=== PATIENT | female | born 1995 | race African-American/Black ===

== ENCOUNTER 2019-12-13 10:57 | Emergency (ER) | payer SELFPAY ==
--- NOTE | 2019-12-13 11:42 | EDPHYS ---
Physician Documentation [facility] Name: Treasure Engle Age: 24 yrs Sex: Female : 1995 Arrival Date: 12/13/2019 Time: 11:00 Bed 18 Private MD: CHARLES Physician Edwar Bhagat HPI: 12/12 11:34 This 24 yrs old Black Female presents to ER via Ambulatory with complaints of Psych lukas Problem. 11:34 The patient presents to the emergency department with depression, suicide ideation, and lukas the patient has a plan, to cut oneself and bleed. Onset: The symptoms/episode began/occurred just prior to arrival. Past psychiatric history: Prior diagnosis: depression. Associated signs and symptoms: The patient has no apparent associated signs or symptoms. Severity of symptoms: At their worst the symptoms were mild in the emergency department the symptoms are unchanged. The patient has not experienced similar symptoms in the past. 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 - Social history:: Smoking status: Patient reports the use of cigarette tobacco products, smokes one-half pack cigarettes per day, Patient uses alcohol, on a daily basis. street drugs, Methamphetamine (Meth). ROS: 11:35 Constitutional: Negative for fever, chills, and weight loss, Eyes: Negative for injury, lukas pain, redness, and discharge, ENT: Negative for injury, pain, and discharge, Neck: Negative for injury, pain, and swelling, Cardiovascular: Negative for chest pain, palpitations, and edema, Respiratory: Negative for shortness of breath, cough, wheezing, and pleuritic chest pain, Abdomen/GI: Negative for abdominal pain, nausea, vomiting, diarrhea, and constipation, Back: Negative for injury and pain, : Negative for injury, bleeding, discharge, and swelling, MS/Extremity: Negative for injury and deformity, Skin: Negative for injury, rash, and discoloration, Neuro: Negative for headache, weakness, numbness, tingling, and seizure, Allergy/Immunology: Negative for hives, rash, and allergies, Endocrine: Negative for neck swelling, polydipsia, polyuria, polyphagia, and marked weight changes, Hematologic/Lymphatic: Negative for swollen nodes, abnormal bleeding, and unusual bruising. 11:35 Psych: Positive for depression, suicidal ideation. Exam: 11:35 Constitutional: This is a well developed, well nourished patient who is awake, alert, lukas and in no acute distress. Head/Face: Normocephalic, atraumatic. Eyes: Pupils equal round and reactive to light, extra-ocular motions intact. Lids and lashes normal. Conjunctiva and sclera are non-icteric and not injected. Cornea within normal limits. Periorbital areas with no swelling, redness, or edema. ENT: Nares patent. No nasal discharge, no septal abnormalities noted. Tympanic membranes are normal and external auditory canals are clear. Oropharynx with no redness, swelling, or masses, exudates, or evidence of obstruction, uvula midline. Mucous membranes moist. Neck: Trachea midline, no thyromegaly or masses palpated, and no cervical lymphadenopathy. Supple, full range of motion without nuchal rigidity, or vertebral point tenderness. No Meningismus. Chest/axilla: Normal chest wall appearance and motion. Nontender with no deformity. No lesions are appreciated. Cardiovascular: Regular rate and rhythm with a normal S1 and S2. No gallops, murmurs, or rubs. Normal PMI, no JVD. No pulse deficits. Respiratory: Lungs have equal breath sounds bilaterally, clear to auscultation and percussion. No rales, rhonchi or wheezes noted. No increased work of breathing, no retractions or nasal flaring. Abdomen/GI: Soft, non-tender, with normal bowel sounds. No distension or tympany. No guarding or rebound. No evidence of tenderness throughout. Back: No spinal tenderness. No costovertebral tenderness. Full range of motion. Female : Normal external genitalia. Skin: Warm, dry with normal turgor. Normal color with no rashes, no lesions, and no evidence of cellulitis. MS/ Extremity: Pulses equal, no cyanosis. Neurovascular intact. Full, normal range of motion. Neuro: Awake and alert, GCS 15, oriented to person, place, time, and situation. Cranial nerves II-XII grossly intact. Motor strength 5/5 in all extremities. Sensory grossly intact. Cerebellar exam normal. Normal gait. Psych: Awake, alert, with orientation to person, place and time. Behavior, mood, and affect are within normal limits. Vital Signs: 11:05 BP 141 / 84; Pulse 102; Resp 16 S; Temp 98.4(O); Pulse Ox 96% on R/A; Weight 154.22 kg ca1 (R); Height 5 ft. 4 in. (162.56 cm) (R); Pain 0/10; 11:05 Body Mass Index 58.36 (154.22 kg, 162.56 cm) ca1 MDM: 11:25 Patient medically screened. [facility] 11:36 Data reviewed: vital signs, nurses notes. Data interpreted: threat monitoring analyst: not [facility] applicable for this patient encounter. Pulse oximetry: on room air is 96 %. ED course: pt states not suicidal now, wants to follow up as out patient, will dc pt and she will return to the er if her situation changes or worsens. 12/12 11:23 Order name: EKG - Nurse/Tech [facility] 12/12 11:23 Order name: IV Saline Lock [facility] 12/12 11:23 Order name: Labs collected and sent [facility] 12/12 11:23 Order name: Urine Dipstick-Ancillary (obtain specimen) [facility] Administered Medications: No medications were administered Disposition: 12/13/19 11:39 Discharged to Home. Impression: Suicidal ideations, Major depressive disorder, recurrent. - Condition is Stable. - Discharge Instructions: Suicidal Feelings: How to Help Yourself, Helping Someone Who is Suicidal, Stress and Stress Management, Major Depressive Disorder, Shea-wc-Pmsy, Major Depressive Disorder. - Medication Reconciliation Form, Thank You Letter, Antibiotic Education, Prescription Opioid Use form. - Follow up: Private Physician; When: 2 - 3 days; Reason: Recheck today's complaints, Continuance of care, Re-evaluation by your physician. - Problem is new. - Symptoms have improved. Signatures: Dispatcher [employer] Breann Harrington RN RN Edwar Ibarra MD MD cha Acob, Cheryl, RN RN ca1 Corrections: (The following items were deleted from the chart) 11:46 11:39 12/13/2019 11:39 Discharged to Home. Impression: Suicidal ideations; Major sv depressive disorder, recurrent. Condition is Stable. Forms are Medication Reconciliation Form, Thank You Letter, Antibiotic Education, Prescription Opioid Use. Follow up: Private Physician; When: 2 - 3 days; Reason: Recheck today's complaints, Continuance of care, Re-evaluation by your physician. Problem is new. Symptoms have improved. lukas
--- NOTE | 2019-12-13 11:42 | ER ---
Nurse's Notes [facility] Name: Treasure Engle Age: 24 yrs Sex: Female : 1995 Arrival Date: 12/13/2019 Time: 11:00 Bed 18 Private MD: Diagnosis: Suicidal ideations;Major depressive disorder, recurrent Presentation: 12/12 11:05 Chief complaint: Patient states: "I was in rehab and they sent me here for psychiatric ca1 emergency. I am suicidal and I plan to do it by slitting my wrist". Reports no previous attempts. Coronavirus screen: Proceed with normal triage. Patient denies a cough. Patient denies shortness of breath or difficulty breathing. Patient denies measured and/or subjective temperature greater than 100.4F prior to today's visit. Patient denies travel on a cruise ship or to a country the [facility] currently lists as an affected area. Patient denies contact with known and/or suspected case of COVID-19. Ebola Screen: Patient negative for fever greater than or equal to 101.5 degrees Fahrenheit, and additional compatible Ebola Virus Disease symptoms Patient denies exposure to infectious person. Patient denies travel to an Ebola-affected area in the 21 days before illness onset. No symptoms or risks identified at this time. Initial Sepsis Screen: Does the patient meet any 2 criteria? No. Patient's initial sepsis screen is negative. Does the patient have a suspected source of infection? No. Patient's initial sepsis screen is negative. Risk Assessment: Do you want to hurt yourself or someone else? Patient reports desire/thoughts of hurting themselves or someone else. Provider notified. Onset of symptoms was December 13, 2019. 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 - Social history:: Smoking status: Patient reports the use of cigarette tobacco products, smokes one-half pack cigarettes per day, Patient uses alcohol, on a daily basis. street drugs, Methamphetamine (Meth). Screenin:20 Abuse screen: Denies threats or abuse. Denies injuries from another. Nutritional sv screening: No deficits noted. Tuberculosis screening: No symptoms or risk factors identified. Fall Risk None identified. Assessment: 11:20 Reassessment: Pt asking how long she has to be here. Stated "I thought they were just sv going to transfer me to a place." Pt informed that we must medically clear her before we can initiate a transfer. Pt appears to not be happy with that. Pt stated that she wants to leave. Pt stated "I don't have a plan. I told them I didn't have these thoughts right now but I've had them in the past." Informed Dr Bhagat of what pt stated. 11:20 General: Appears in no apparent distress. comfortable, Behavior is calm, cooperative, sv appropriate for age. Pain: Denies pain. Neuro: Level of Consciousness is awake, alert, obeys commands, Oriented to person, place, time, situation, Gait is steady. Respiratory: Airway is patent Respiratory effort is even, unlabored, Respiratory pattern is regular, symmetrical. Derm: Skin is pink, warm \\T\\ dry. 11:29 Reassessment: Dr Bhagat at the bedside. sv 11:46 Reassessment: Patient appears in no apparent distress at this time. No changes from sv previously documented assessment. Patient and/or family updated on plan of care and expected duration. Pain level reassessed. Patient is alert, oriented x 3, equal unlabored respirations, skin warm/dry/pink. Psych: 11:10 Subjective: Patient's mood is sad, Delusions are denied, Hallucinations are auditory, ca1 visual, Having thoughts of suicide. Plan for suicide is slit her wrist. Objective: Patient is cooperative, Speech is normal, Affect is appropriate. Interventions: Removed personal items and placed in bag. Patient placed in hospital gown. Searched person for dangerous items. Urine collected and sent for urine drug test. Belonging list filled out. Suicide Risk Assessment: Sad Person Scale: Sex of patient: Female: Score 0 points. Age of patient: Score 1 point if patient 15-34. Depression: Score 1 point if signs of depression are present. Previous Attempt: Score 0 point if patient has not previously attempted suicide. Substance Abuse: Score 1 point if patient abuses alcohol or drugs. Rational Thinking: Score 0 point if patient has rational thinking. Social Support: Score 0 if social support is present/available. Organized Plan: Score 1 point if patient had a plan in place. Relationship: Score 1 point if patient is , , , or for a single male Chronic Sickness: Score 0 point if patient does not have a chronic illness, debilitating, or severe disorder. TOTAL POINTS: If total points are 5-6, proposed clinical action is to strongly consider hospitalization, depending upon confidence in the follow-up arrangement. Implement suicide precautions. Safety Checks: Personal items have been removed. Door is open. Patient uses methamphetamines a gram a day daily. Last use was 1 months ago. Vital Signs: 11:05 BP 141 / 84; Pulse 102; Resp 16 S; Temp 98.4(O); Pulse Ox 96% on R/A; Weight 154.22 kg ca1 (R); Height 5 ft. 4 in. (162.56 cm) (R); Pain 0/10; 11:05 Body Mass Index 58.36 (154.22 kg, 162.56 cm) ca1 ED Course: 11:00 Patient arrived in ED. ag5 11:02 Edwar Bhagat MD is Attending Physician. [facility] 11:08 Triage completed. ca1 11:10 Arm band placed on right wrist. ca1 11:20 Patient has correct armband on for positive identification. Placed in gown. Bed in low sv position. 11:29 Breann Bejarano RN is Primary Nurse. sv 11:46 No provider procedures requiring assistance completed. Patient did not have IV access sv during this emergency room visit. Administered Medications: No medications were administered Outcome: 11:39 Discharge ordered by . lukas 11:46 Patient left the ED. sv 11:46 Discharged to home ambulatory. sv 11:46 Condition: stable 11:46 Discharge instructions given to patient, Instructed on discharge instructions, follow up and referral plans. Demonstrated understanding of instructions, follow-up care. Signatures: Breann Bejarano RN RN sv Anderson, Corey, MD MD cha Acob, Cheryl, RN RN ca1 Noah Aldair ag5
[2019-12-13 12:16] VITALS: BP 141/84; TEMP 98.4; O2SAT 96
== END 2019-12-13 11:46 | disposition home or self-care (01) ==
LOC: ER 10:57
DX: F33.9 Major depressive disorder, recurrent, unspecified (principal); F17.210 Nicotine dependence, cigarettes, uncomplicated
CPT/HCPCS: 99284

== ENCOUNTER 2019-12-19 11:17 | Emergency (ER) | payer SELFPAY ==
[2019-12-19 12:11] LABS: Absolute Lymphocytes (CBC) 2.1 K/uL (0.7-4.9); Hematocrit 35.5 % (36.0-45.0); Lymphocytes % 33.5 % (15.3-44.8); MPV 9.9 fL (7.6-11.3); RBC Red Blood Cell Count 4.29 M/uL (3.86-4.86)
--- OUTSIDE RECORDS SUMMARY | 2019-12-19 12:26 | XMS REPORT ---
:1995 Author Organization [facility] t Address [address] [place] [address] Care Team Providers Name Role Phone Unavailable Unavailable Unavailable Payers Payer Name Policy Type Policy Number Effective Date Expiration Date S ource Problems This patient has no known problems. Allergies, Adverse Reactions, Alerts Allergy Allergy Status Severity Reaction(s) Onset Inactive Treating Comm ents Source Name Type Date Date Clinician No Known DA Active U 2018-0 [facility] 1-18 Clear s 00:00: Barba 00 [facility] No Known DA Active U 2011-0 [facility] Allergie 6-06 Clear s 00:00: Barba 00 [facility] Medications This patient has no known medications. Procedures This patient has no known procedures. Encounters Start End Encounter Admission Attending Care Care Encounter Source Date/Time Date/Time Type Type Clinicians Facility Department ID 2017-08-27 2017-08-27 [facility]patient [facility] [id number] [address] [place] [address] 00:00:00 00:00:00 [facility] Results Test Description Test Time Test Comments Results Result Comments Source DRUGS OF ABUSE SCREEN UR 2018-09-25 17:28:00 Test Item Value Reference Range Interpretation Comme nts URN COCAINE (test code = COCAURN) NEGATIVE NEGATIVE URN CANNABINOIDS (test code = NEGATIVE NEGATIVE CANNABURN) URN AMPHETAMINE (test code = POSITIVE NEGATIVE A AMPHETURN) URN BARBITURATE (test code = NEGATIVE NEGATIVE BARBITURN) URN BENZODIAZEPINE (test code = NEGATIVE NEGATIVE Cut-off value:200 ng/mL BENZOURN) URN OPIATES (test code = NEGATIVE NEGATIVE Cut -off value:2000 ng/mL OPIATURN) URN PHENCYCLIDINE (PCP) (test NEGATIVE NEGATIVE Cutoffs:Barbiturates code = PHENCURN) 200 ng/mLB enzodiazepines 200 ng/mLTHC Cannabinoids 50 ng/mLO piates(Morphine) 2000 ng/m LAmphetamine 1000 ng /mLCocaine 300 ng/mLPCP phencyclidine 25 ng/mL Unconfirmed scr eening results shouldnot be us ed for non-medical pur poses. DRUGS OF ABUSE SCREEN [id number] 17:12:00 Test Item Value Reference Range Interpretation Comments URN COCAINE (test code NEGATIVE NEGATIVE = COCAURN) URN CANNABINOIDS (test NEGATIVE NEGATIVE code = CANNABURN) URN AMPHETAMINE (test NEGATIVE code = AMPHETURN) URN BARBITURATE (test NEGATIVE NEGATIVE code = BARBITURN) URN BENZODIAZEPINE NEGATIVE NEGATIVE Cut-off v alue:200 (test code = BENZOURN) ng/mL URN OPIATES (test code NEGATIVE NEGATIVE Cut-o ff value:2000 = OPIATURN) ng/mL URN PHENCYCLIDINE (PCP) NEGATIVE NEGATIVE Cuto ffs:Barbiturates (test code = PHENCURN) 200 ng/mLBenzodiaze pines 200 ng/ mLTHC Cannabinoids 50 ng/mLOpiates(Mo rphine) 2000 ng/mLAmphetamin e 1000 ng/mLCocaine 300 ng/ mLPCP phencyclidine 25 ng/mL Unconf irmed screening resul ts shouldnot be us ed for non-medical pur poses. URINALYSIS [id number] 16:59:00 Test Item Value Reference Range Interpretation Comments UA COLOR (test code = COLU) YELLOW YEL/STRAW UA APPEARANCE (test code = APPU) CLOUDY CLEAR A UA GLUCOSE DIPSTICK (test code = NEGATIVE NEGATIVE DGLUU) UA BILIRUBIN DIPSTICK (test code NEGATIVE NEGATIVE = BILU) UA KETONE DIPSTICK (test code = TRACE NEGATIVE A KETU) UA SPECIFIC GRAVITY (test code = 1.009 1.005-1.030 N SGU) UA BLOOD DIPSTICK (test code = NEGATIVE NEGATIVE LUCIEN) UA PH DIPSTICK (test code = BENJA) 6.0 5.0-7.0 N UA PROTEIN DIPSTICK (test code = NEGATIVE NEGATIVE PROU) UA UROBILINIOGEN DIPSTICK (test 0.2 mg/dL 0.2-1.0 code = URO) UA NITRITE DIPSTICK (test code = NEGATIVE NEGATIVE ILENE) UA LEUKOCYTE ESTERASE DIPSTICK NEGATIVE NEGATIVE (test code = LEUU) UA WBC (test code = WBCU) 0-3 WBC/HPF 0-3 UA RBC (test code = RBCU) 0-3 RBC/HPF 0-3 UA BACTERIA (test code = BACU) TRACE /HPF NONE SEEN UA SQUAMOUS CELLS (test code = 0-5 /HPF NONE SEEN SQU) UA HYALINE CAST (test code = 3-5 /LPF NONE SEEN HYALU) UA MUCUS (test code = MUCU) 2+ /LPF NONE SEEN A COMMENTS: Clean Catch- XR CHEST 1 [id number] 16:09:00 FAX: Asher Pringle MD [phone] [place]: St: REG Name: GAVIN CRUZ [facility] : 1995 Age/S: 22/F [address] [place] [address] Unit#: [id number] Loc: G.ERS2 [place] [address] Phys: Asher Pringle MD Acct: [id number] Dis Date: Status: REG ER PHONE #: [phone] Exam Date: 09/25/2018 1601 FAX #: [phone] Reason: Cough EXAMS: CPT CODE: [id number] XR CHEST 1 V 66629 Clinical Indication: Cough Comparison: Chest x-ray August 20, 2018 FINDINGS: The frontal chest radiograph shows normal lung volumes without interstitial or airspace opacities, pleural effusions or pneumothorax. The heart is normal in size. The trachea is midline. There are no clinically significant osseous abnormalities noted. IMPRESSION: No chest radiographic evidence of acute cardiopulmonary disease. SL: [id number] at 1609 Reported and signed by: Tyrone Irvin M.D. CC: Asher Pringle MD Technologist: Anna Danielson,RT(R); Breann Lorenzo, RT(R) Trnscrd Date/Time/By: 09/25/2018 (9284) : By: KatherinLNV Orig Print D/T: S: 09/25/2018 (4298) PAGE 1 Signed ReportCOMPREHENSIVE METABOLIC [id number] 15:50:00 Test Item Value Reference Range Interpretation Comments SODIUM (test code = NA) 141 mEq/L 134-147 N POTASSIUM (test code = 4.0 mEq/L 3.4-5.0 N K) CHLORIDE (test code = 106 mEq/L 100-108 N CL) CARBON DIOXIDE (test 28 mEq/L 21-33 N code = CO2) ANION GAP (test code = 11 0-20 N GAP) GLUCOSE (test code = 81 mg/dL 70-110 N GLU) BLOOD UREA NITROGEN 11 mg/dL 7-18 N (test code = BUN) GLOMERULAR FILTRATION 129.1 110-120 H Units of measure = RATE (test code = GFR) ml/mi n/1.73 m2 CREATININE (test code = 0.7 mg/dL 0.6-1.3 N CREAT) TOTAL PROTEIN (test 9.0 g/dL 6.4-8.2 H code = PROT) ALBUMIN (test code = 3.90 g/dL 3.4-5.0 N ALB) CALCIUM (test code = 8.9 mg/dL 8.0-10.5 N CA) BILIRUBIN TOTAL (test 0.30 mg/dL 0.0-1.0 N code = BILT) SGOT/AST (test code = 24 IUnit/L 15-37 N AST) SGPT/ALT (test code = 64 IUnit/L 15-65 N ALT) ALKALINE PHOSPHATASE 118 IUnit/L 20-125 N TOTAL (test code = ALKP) BILIRUBIN [id number] 15:50:00 Test Item Value Reference Range Interpretation Comments BILIRUBIN DIRECT (test code = 0.10 MG/DL 0.0-0.30 N BILD) HCG SERUM [id number] 15:50:00 Test Item Value Reference Range Interpretation Comments HCG SERUM QUAL (test code = SERUM NEGATIVE NEGATIVE HCGQL) THYROID STIMULATING [id number] 15:50:00 Test Item Value Reference Range Interpretation Comments THYROID STIMULATING 3.44 0.42-5.47 N Results in HORMONE (test code = TSH) mi lli-International Units/mL [id number] 15:50:00 Test Item Value Reference Range Interpretation Comments ACETAMINOPHEN (test code = ACET) < 2 ug/mL 10-30 L [id number] 15:50:00 Test Item Value Reference Range Interpretation Comments SALICYLATE (test code = TROY) 3.7 mg/dL 2.8-20.0 N [id number] 15:50:00 Test Item Value Reference Range Interpretation Comments ALCOHOL (test code < 0.003 G/dL <0.003 Ethyl Alc ohol = ALC) Interpretation: 0.100 gm/dL - Legally Intoxic ated 0.300-0.40 0 gm/dL - Severely Into xicated >0.400 gm/dL - Potentially LethalResults a re for Medical purpose s only, and not for Leg al orEmployment ev aluation purposes. COMPREHENSIVE METABOLIC [id number] 15:44:00 Test Item Value Reference Range Interpretation Comments SODIUM (test code = NA) 141 mEq/L 134-147 N POTASSIUM (test code = 4.0 mEq/L 3.4-5.0 N K) CHLORIDE (test code = 106 mEq/L 100-108 N CL) CARBON DIOXIDE (test 28 mEq/L 21-33 N code = CO2) ANION GAP (test code = 11 0-20 N GAP) GLUCOSE (test code = 81 mg/dL 70-110 N GLU) BLOOD UREA NITROGEN 11 mg/dL 7-18 N (test code = BUN) GLOMERULAR FILTRATION 129.1 110-120 H Units of measure = RATE (test code = GFR) ml/mi n/1.73 m2 CREATININE (test code = 0.7 mg/dL 0.6-1.3 N CREAT) TOTAL PROTEIN (test g/dL 6.4-8.2 code = PROT) ALBUMIN (test code = 3.90 g/dL 3.4-5.0 N ALB) CALCIUM (test code = 8.9 mg/dL 8.0-10.5 N CA) BILIRUBIN TOTAL (test mg/dL 0.0-1.0 code = BILT) SGOT/AST (test code = 24 IUnit/L 15-37 N AST) SGPT/ALT (test code = 64 IUnit/L 15-65 N ALT) ALKALINE PHOSPHATASE IUnit/L 20-125 TOTAL (test code = ALKP) BILIRUBIN [id number] 15:44:00 Test Item Value Reference Range Interpretation Comments BILIRUBIN DIRECT (test code = 0.10 MG/DL 0.0-0.30 N BILD) HCG SERUM [id number] 15:44:00 Test Item Value Reference Range Interpretation Comments HCG SERUM QUAL (test code = SERUM NEGATIVE NEGATIVE HCGQL) THYROID STIMULATING [id number] 15:44:00 Test Item Value Reference Range Interpretation Comments THYROID STIMULATING HORMONE (test code 0.42-5.47 = TSH) [id number] 15:44:00 Test Item Value Reference Range Interpretation Comments ACETAMINOPHEN (test code = ACET) ug/mL 10-30 [id number] 15:44:00 Test Item Value Reference Range Interpretation Comments SALICYLATE (test code = TROY) mg/dL 2.8-20.0 [id number] 15:44:00 Test Item Value Reference Range Interpretation Comments ALCOHOL (test code = ALC) G/dL <0.003 COMPREHENSIVE METABOLIC [id number] 15:42:00 Test Item Value Reference Range Interpretation Comments SODIUM (test code = NA) 141 mEq/L 134-147 N POTASSIUM (test code = 4.0 mEq/L 3.4-5.0 N K) CHLORIDE (test code = 106 mEq/L 100-108 N CL) CARBON DIOXIDE (test 28 mEq/L 21-33 N code = CO2) ANION GAP (test code = 11 0-20 N GAP) GLUCOSE (test code = 81 mg/dL 70-110 N GLU) BLOOD UREA NITROGEN 11 mg/dL 7-18 N (test code = BUN) GLOMERULAR FILTRATION 129.1 110-120 H Units of measure = RATE (test code = GFR) ml/mi n/1.73 m2 CREATININE (test code = 0.7 mg/dL 0.6-1.3 N CREAT) TOTAL PROTEIN (test g/dL 6.4-8.2 code = PROT) ALBUMIN (test code = 3.90 g/dL 3.4-5.0 N ALB) CALCIUM (test code = 8.9 mg/dL 8.0-10.5 N CA) BILIRUBIN TOTAL (test mg/dL 0.0-1.0 code = BILT) SGOT/AST (test code = 24 IUnit/L 15-37 N AST) SGPT/ALT (test code = 64 IUnit/L 15-65 N ALT) ALKALINE PHOSPHATASE IUnit/L 20-125 TOTAL (test code = ALKP) BILIRUBIN [id number] 15:42:00 Test Item Value Reference Range Interpretation Comments BILIRUBIN DIRECT (test code = 0.10 MG/DL 0.0-0.30 N BILD) HCG SERUM [id number] 15:42:00 Test Item Value Reference Range Interpretation Comments HCG SERUM QUAL (test code = HCGQL) NEGATIVE THYROID STIMULATING [id number] 15:42:00 Test Item Value Reference Range Interpretation Comments THYROID STIMULATING HORMONE (test code 0.42-5.47 = TSH) [id number] 15:42:00 Test Item Value Reference Range Interpretation Comments ACETAMINOPHEN (test code = ACET) ug/mL 10-30 [id number] 15:42:00 Test Item Value Reference Range Interpretation Comments SALICYLATE (test code = TROY) mg/dL 2.8-20.0 [id number] 15:42:00 Test Item Value Reference Range Interpretation Comments ALCOHOL (test code = ALC) G/dL <0.003 CBC W/AUTO [id number] 15:33:00 Test Item Value Reference Range Interpretation Comments WHITE BLOOD CELL (test code = 10.35 x10 3/uL 4.5-11.0 WBC) RED BLOOD CELL (test code = 4.31 x10 6/uL 3.54-5.02 N RBC) HEMOGLOBIN (test code = HGB) 11.5 g/dL 11.0-15.0 N HEMATOCRIT (test code = HCT) 37.3 % 33.0-45.0 N MEAN CELL VOLUME (test code = 86.5 fL 81.0-99.0 N MCV) MEAN CELL HGB (test code = 26.7 pg 27.0-33.0 L MCH) MEAN CELL HGB CONCETRATION 30.8 g/dL 33.0-37.0 L (test code = MCHC) RED CELL DISTRIBUTION WIDTH CV 15.7 % 11.5-14.5 H (test code = RDW) RED CELL DISTRIBUTION WIDTH SD 49.5 fL 37.0-54.0 N (test code = RDW-SD) PLATELET COUNT (test code = 336 x10 3/uL 150-400 N PLT) MEAN PLATELET VOLUME (test 11.4 fL 7.0-9.0 H code = MPV) NEUTROPHIL % (test code = NT%) 65.0 % 56.0-77.0 N IMMATURE GRANULOCYTE % (test 0.8 % 0.0-2.0 N code = IG%) LYMPHOCYTE % (test code = LY%) 23.2 % 14.0-32.0 N MONOCYTE % (test code = MO%) 10.1 % 4.8-9.0 H EOSINOPHIL % (test code = EO%) 0.3 % 0.3-3.7 N BASOPHIL % (test code = BA%) 0.6 % 0.0-2.0 N NUCLEATED RBC % (test code = 0.0 % 0-0 N NRBC%) NEUTROPHIL # (test code = NT#) 6.73 x10 3/uL 2.0-7.6 N IMMATURE GRANULOCYTE # (test 0.08 x10 3/uL 0.00-0.03 H code = IG#) LYMPHOCYTE # (test code = LY#) 2.40 x10 3/uL 1.0-3.8 N MONOCYTE # (test code = MO#) 1.05 x10 3/uL 0.1-0.8 H EOSINOPHIL # (test code = EO#) 0.03 x10 3/uL 0.0-0.2 N BASOPHIL # (test code = BA#) 0.06 x10 3/uL 0.0-0.2 N NUCLEATED RBC # (test code = 0.00 x10 3/uL 0.0-0.1 N NRBC#) MANUAL DIFF REQUIRED (test NO code = MDIFF) PROCALCITONIN (PCT)2018-08-20 05:02:00 Test Item Value Reference Range Interpretation Comments PROCALCITONIN (PCT) 0.06 ng/mL 0.00-0.05 H PROCALCI TONIN (PCT) (test code = PROCAL) NORMAL RANGE (ADULT): <0.05 NG/ML. * a concentration < 0.5 ng/mL represent s a low risk of severe sepsis and/or septic s hock.* a concentration > 2 ng/mL represents a hi gh risk of severe seps is and/or septic shock.Neverthel ess, concentrations <0.5 ng/mL do not ex clude aninfection, on account of localized in fections (withoutsystemi c signs) which can be as sociated with such lowconcentratio ns, or a systemic infect ion in its initialstag es (< 6 hours). Further more, increased procalcitoninca n occur without infecti on. PCT concentrations between 0.5and 2.0 ng/m L should be interpreted taking into account thepatient's hi story. It is recommend ed to retest PCT with in6-24 hours if any concentrations <2 ng/mL are obtained. HEPATIC FUNCTION [id number] 04:51:00 Test Item Value Reference Range Interpretation Comments TOTAL PROTEIN (test code = PROT) 8.6 g/dL 6.4-8.2 H ALBUMIN (test code = ALB) 3.70 g/dL 3.4-5.0 N BILIRUBIN TOTAL (test code = 0.30 mg/dL 0.0-1.0 N BILT) BILIRUBIN DIRECT (test code = 0.10 MG/DL 0.0-0.30 N BILD) BILIRUBIN INDIRECT (test code = 0.20 MG/DL BILIND) SGOT/AST (test code = AST) 13 IUnit/L 15-37 L SGPT/ALT (test code = ALT) 28 IUnit/L 15-65 N ALKALINE PHOSPHATASE TOTAL (test 115 IUnit/L 20-125 N code = ALKP) URINALYSIS [id number] 04:48:00 Test Item Value Reference Range Interpretation Comments UA COLOR (test code = COLU) YELLOW YEL/STRAW UA APPEARANCE (test code = CLEAR CLEAR APPU) UA GLUCOSE DIPSTICK (test code NEGATIVE NEGATIVE = DGLUU) UA BILIRUBIN DIPSTICK (test NEGATIVE NEGATIVE code = BILU) UA KETONE DIPSTICK (test code NEGATIVE NEGATIVE = KETU) UA SPECIFIC GRAVITY (test code 1.011 1.005-1.030 N = SGU) UA BLOOD DIPSTICK (test code = NEGATIVE NEGATIVE LUCIEN) UA PH DIPSTICK (test code = 8.0 5.0-7.0 H BENJA) UA PROTEIN DIPSTICK (test code NEGATIVE NEGATIVE = PROU) UA UROBILINIOGEN DIPSTICK 0.2 mg/dL 0.2-1.0 (test code = URO) UA NITRITE DIPSTICK (test code NEGATIVE NEGATIVE = ILENE) UA LEUKOCYTE ESTERASE DIPSTICK NEGATIVE NEGATIVE (test code = LEUU) UA WBC (test code = WBCU) 0-3 WBC/HPF 0-3 UA RBC (test code = RBCU) 0-3 RBC/HPF 0-3 UA BACTERIA (test code = BACU) NONE SEEN /HPF NONE SEEN UA SQUAMOUS CELLS (test code = 0-5 /HPF NONE SEEN SQU) COMMENTS: Clean CatchUA CULT [id number] 04:48:00 Test Item Value Reference Range Interpretation Comments UA CULTURE NEEDED? NO, WBC<10 Culture Chk Criteria not met, (test code = Criteria Urine Culture UACULT) cancelled. COMMENTS: Clean CatchCBC W/AUTO [id number] 04:29:00 Test Item Value Reference Range Interpretation Comments WHITE BLOOD CELL (test code = 18.52 x10 3/uL 4.5-11.0 H WBC) RED BLOOD CELL (test code = 4.14 x10 6/uL 3.54-5.02 N RBC) HEMOGLOBIN (test code = HGB) 11.1 g/dL 11.0-15.0 N HEMATOCRIT (test code = HCT) 35.3 % 33.0-45.0 N MEAN CELL VOLUME (test code = 85.3 fL 81.0-99.0 N MCV) MEAN CELL HGB (test code = 26.8 pg 27.0-33.0 L MCH) MEAN CELL HGB CONCETRATION 31.4 g/dL 33.0-37.0 L (test code = MCHC) RED CELL DISTRIBUTION WIDTH CV 15.7 % 11.5-14.5 H (test code = RDW) RED CELL DISTRIBUTION WIDTH SD 49.2 fL 37.0-54.0 N (test code = RDW-SD) PLATELET COUNT (test code = 292 x10 3/uL 150-400 N PLT) MEAN PLATELET VOLUME (test 11.6 fL 7.0-9.0 H code = MPV) NEUTROPHIL % (test code = NT%) 87.3 % 56.0-77.0 H IMMATURE GRANULOCYTE % (test 0.8 % 0.0-2.0 N code = IG%) LYMPHOCYTE % (test code = LY%) 6.4 % 14.0-32.0 L MONOCYTE % (test code = MO%) 5.0 % 4.8-9.0 N EOSINOPHIL % (test code = EO%) 0.2 % 0.3-3.7 L BASOPHIL % (test code = BA%) 0.3 % 0.0-2.0 N NUCLEATED RBC % (test code = 0.0 % 0-0 N NRBC%) NEUTROPHIL # (test code = NT#) 16.18 x10 3/uL 2.0-7.6 H IMMATURE GRANULOCYTE # (test 0.14 x10 3/uL 0.00-0.03 H code = IG#) LYMPHOCYTE # (test code = LY#) 1.19 x10 3/uL 1.0-3.8 N MONOCYTE # (test code = MO#) 0.92 x10 3/uL 0.1-0.8 H EOSINOPHIL # (test code = EO#) 0.03 x10 3/uL 0.0-0.2 N BASOPHIL # (test code = BA#) 0.06 x10 3/uL 0.0-0.2 N NUCLEATED RBC # (test code = 0.00 x10 3/uL 0.0-0.1 N NRBC#) MANUAL DIFF REQUIRED (test NO code = MDIFF) - XR CHEST 2 [id number] 04:04:00 FAX: Pro Hoffman NP [phone] [place]: [address]: REG Name: GAVIN CRUZ [facility] : 1995 Age/S: 22/F [address] [place], [place] [address] Unit#: [id number] Loc: [place] [address] Phys: Pro Hoffman NP Acct: [id number] Dis Date: Status: REG ER PHONE #: [phone] Exam Date: 08/20/2018 0356 FAX #: [phone] Reason: COugh, fever EXAMS: CPT CODE: [id number] XR CHEST 2 V [id number] EXAM: CR, XR chest 2 views: 08/20/2018 HISTORY: COugh, fever TECHNIQUE: Frontal and lateral chest radiographs are submitted COMPARISON: None available. FINDINGS: Trachea is in midline. Heart is normalin size. Mild pulmonary vascular congestion is seen. No airspace consolidation, pneumothorax or pleural effusion is seen. Osseous structures are unremarkable. IMPRESSION: Mild pulmonary vascular congestion. No airspace consolidation seen.SL:[JSYED-H] at 0404 Reported and signed by: Ulysses Allred M.D. 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) [employer] with joint leadershi p from the EuropeanSociety of Cardiology (ESC ), the [place] Colleg e of Card[employer] Foun dation (ACCF), the [place] Heart Association(AHA ) and the World Heart Fed eration (WHF) refined p ast criteria of myocardial i nfarction ([place]) with a uni versal definition of m yocardial infarction that supports the use of cTnI as a preferred bioma rker for myocardial inju ry. The universal defin ition of [place], according to th is taskforce, is d efined as a typical rise an d gradual fall ofcardiac biomarkers (preferably tro ponin) with at least oneval ue above the 99th percentile of the upper reference limit (URL) together with e vidence of myocardial isch emia with at least one of th e following:* isc hemic symptoms,* path ological Q waves on electr ocardiogram (ECG),* ischemi c ECG changes,* or im aging evidence of new loss of viable myocardi um or new regional wall m otion abnormality. An elevated troponin value alone is not sufficient todi agnose a myocardial infa rction. Rather, the pat ient sclinical prese ntation (history, physi sergei exam) and ECGshould b e used in conjunction wit h troponin in thediagnosti c evaluation of suspected my ocardial infarction. Ase rial sampling protoc ol is recommended to facilitate the identificat ion of temporal change s in troponin levels characteristic of [place]. CHEMISTRY 8 [id number] 03:49:00 Test Item Value Reference Range Interpretation Comments ISTAT-SODIUM (test code = NAP) MMOL/L 134-147 ISTAT-POTASSIUM (test code = KP) MMOL/L 3.4-5.0 ISTAT-CHLORIDE (test code = CLP) MMOL/L 100-108 ISTAT CARBON DIOXIDE (test code = mmol/L 21-33 N ISTAT-CO2) ISTAT CALCIUM IONIZED (test code = MG/DL 1.12-1.32 ISTAT-MAGALIE) ISTAT-GLUCOSE (test code = GLUP) MG/DL 70-110 N ISTAT-BUN (test code = BUNP) MG/DL 7-18 N BEDSIDE CREATININE (test code = MG/DL 0.6-1.3 N CREATBED) GLOMERULAR FILTRATION RATE POC 164 ML/MIN (test code = GFRBED) CHEMISTRY 8 [id number] 03:49:00 Test Item Value Reference Range Interpretation Comments ISTAT-SODIUM (test 140 MMOL/L 134-147 N code = NAP) ISTAT-POTASSIUM (test 3.6 MMOL/L 3.4-5.0 N code = KP) ISTAT-CHLORIDE (test 100 MMOL/L 100-108 N Perform ed by code = CLP) certified opera tor at [facility] ISTAT CARBON DIOXIDE 25.0 mmol/L 21-33 N (test code = ISTAT-CO2) ISTAT CALCIUM IONIZED 1.17 MG/DL 1.12-1.32 N (test code = ISTAT-MAGALIE) ISTAT-GLUCOSE (test 108 MG/DL 70-110 N code = GLUP) ISTAT-BUN (test code = 8 MG/DL 7-18 N BUNP) BEDSIDE CREATININE 0.6 MG/DL 0.6-1.3 N (test code = CREATBED) GLOMERULAR FILTRATION 164 ML/MIN RATE POC (test code = GFRBED) LACTIC ACID [id number] 03:48:00 Test Item Value Reference Range Interpretation Comments LACTIC ACID POC 0.7 MMOL/L 0.90-1.70 L Performed by certified (test code = LACTP) 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
[2019-12-19 12:28] LABS: ALT/SGPT 36 U/L (12-78); AST/SGOT 24 U/L (15-37); Albumin 3.2 g/dL (3.4-5.0); Alkaline Phosphatase 118 U/L (45-117); BUN Blood Urea Nitrogen 7 mg/dL (7-18); Bicarbonate 28 mmol/L (21-32); Bilirubin Direct < 0.1 mg/dL (0-0.2); Bilirubin Total 0.1 mg/dL (0.2-1.0); Glucose Level 126 mg/dL (74-106); Potassium 3.8 mmol/L (3.5-5.1); Protein, Total 8.3 g/dL (6.4-8.2); Sodium Level 139 mmol/L (136-145); Troponin (Emerg Dept Use Only) < 0.02 ng/mL (0.0-0.045)
--- NOTE | 2019-12-19 12:36 | RAD REPORT ---
EXAM DESCRIPTION: RAD - Chest Single View - 12/19/2019 11:43 am CLINICAL HISTORY: CHEST PAIN COMPARISON: None TECHNIQUE: AP portable chest image was obtained 12/19/2019 11:43 am . FINDINGS: Lungs are clear. Heart and vasculature are normal. No measurable pleural effusion and no p neumothorax. No acute bony abnormality seen. No acute aortic findings suspected. IMPRESSION: No acute cardiopulmonary process. Body habitus is somewhat limiting for lung base evaluation. There is slight motion degradation at eac h lung base as well.
--- NOTE | 2019-12-19 12:36 | RAD REPORT ---
EXAM DESCRIPTION: US - Abdomen Exam Limited - 12/19/2019 11:41 am CLINICAL HISTORY: chest pain, rule out cholelithiasis COMPARISON: No comparisons FINDINGS: No gallstones, sludge or other abnormalities within the gallbladder lumen. There is no wal l thickening or pericholecystic fluid. No common duct stone or biliary tree dilatation identified. IMPRESSION: Normal gallbladder and biliary tree ultrasound.
--- NOTE | 2019-12-19 13:08 | EDPHYS ---
Physician Documentation [facility] Name: Treasure Engle Age: 24 yrs Sex: Female : 1995 Arrival Date: 12/19/2019 Time: 11:19 Bed 19 Private MD: ED Physician Emil Giraldo HPI: 12/18 11:24 This 24 yrs old Black Female presents to ER via EMS with complaints of chest pain. rn 11:24 The patient or guardian reports chest pain that is located primarily in the anterior rn chest wall. The pain radiates to the left arm. Associated signs and symptoms: The patient has no apparent associated signs or symptoms, Pertinent negatives: abdominal pain, cough, diaphoresis, lower extremity pain, lower extremity swelling, lightheadedness, nausea, near syncope, palpitations, shortness of breath, syncope, vomiting. The chest pain is described as aching. Duration: The patient or guardian reports a single episode, that is still ongoing. Modifying factors: The symptoms are alleviated by nothing. the symptoms are aggravated by nothing. Severity of pain: At its worst the pain was moderate in the emergency department the pain has improved. The patient has not experienced similar symptoms in the past. Reports chest pain, substernal, radiates to left arm, has never felt before, no sick contacts and no cough/fever/sob. Began while eating today. No abd pain/vomiting/diarrhea. . 11:26 No famhx of early cardiac disease, no trauma. . 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 tw2 Historical: - Allergies: 11:23 No Known Allergies; - Home Meds: 11:23 Celexa Oral [Active]; Doxepin Oral [Active]; Zyprexa Oral [Active]; ah - PMHx: 11:23 Depression; - PSHx: 11:23 None; - Immunization history:: Adult Immunizations. - Family history:: not pertinent. - Social history:: Smoking status: . - Hospitalizations: : No recent hospitalization is reported. ROS: 11:26 Constitutional: Negative for fever, chills, and weight loss, Cardiovascular: Negative rn for palpitations, and edema, Respiratory: Negative for shortness of breath, cough, wheezing, and pleuritic chest pain, Abdomen/GI: Negative for abdominal pain, nausea, vomiting, diarrhea, and constipation, Back: Negative for injury and pain, : Negative for injury, bleeding, discharge, and swelling, MS/Extremity: Negative for injury and deformity, Skin: Negative for injury, rash, and discoloration, Neuro: Negative for headache, weakness, numbness, tingling, and seizure. Exam: 11:26 Constitutional: Overweight female, no acute distress Head/Face: Normocephalic, rn atraumatic. Eyes: Pupils equal round and reactive to light, extra-ocular motions intact. Lids and lashes normal. Conjunctiva and sclera are non-icteric and not injected. Cornea within normal limits. Periorbital areas with no swelling, redness, or edema. Cardiovascular: Regular rate and rhythm, no JVD. No murmur. No pulse deficits. Respiratory: Lungs have equal breath sounds bilaterally, clear to auscultation. No increased work of breathing, no retractions or nasal flaring. Abdomen/GI: soft, non-tender, neg putnam Skin: Warm, dry with normal turgor. Normal color with no rashes, no lesions, and no evidence of cellulitis. MS/ Extremity: Pulses equal, no cyanosis. Neurovascular intact. Full, normal range of motion. Equal circumference. Neuro: Awake and alert, GCS 15 11:51 ECG was reviewed by the Attending Physician. rn Vital Signs: 11:33 BP 133 / 79; Pulse 96; Resp 17; Temp 97.9(TE); Pulse Ox 100% on R/A; Weight 154.22 kg tw2 (R); Height 5 ft. 4 in. (162.56 cm); 12:18 BP 112 / 81; Pulse 87; Resp 19; Pulse Ox 99% on R/A; tw2 13:23 BP 122 / 77; Pulse 84; Resp 18; Pulse Ox 99% on R/A; tw2 11:33 Body Mass Index 58.36 (154.22 kg, 162.56 cm) tw2 MDM: 11:22 Patient medically screened. rn 13:06 Differential diagnosis: Cholelithiasis costochondritis, esophagitis, gastritis, rn gastroesophageal reflux disease (GERD), pericarditis, pleurisy, pneumothorax. Data reviewed: vital signs, nurses notes, lab test result(s), EKG, radiologic studies, plain films, ultrasound, and as a result, I will discharge patient. Counseling: I had a detailed discussion with the patient and/or guardian regarding: the historical points, exam findings, and any diagnostic results supporting the discharge/admit diagnosis, lab results, radiology results, the need for outpatient follow up, to return to the emergency department if symptoms worsen or persist or if there are any questions or concerns that arise at home. Special discussion: Based on the patient's history, exam, and Dx evaluation, there is no indication for emergent intervention or inpatient Tx. It is understood by the patient/guardian that if the Sx's persist or worsen they need to return immediately for re-evaluation. I discussed with the patient/guardian in detail that at this point there is no indication for admission to the hospital. It is understood, however, that if the symptoms persist or worsen the patient needs to return immediately for re-evaluation. 12/18 11:24 Order name: Basic Metabolic Panel; Complete Time: 12:35 12/18 11:24 Order name: CBC with Diff; Complete Time: 12:35 12/18 11:24 Order name: LFT's; Complete Time: 12:35 12/18 11:24 Order name: Troponin (emerg Dept Use Only); Complete Time: 12:35 12/18 11:24 Order name: XRAY Chest (1 view); Complete Time: 12:58 12/18 11:26 Order name: US Abdomen Limited; Complete Time: 12:58 12/18 11:24 Order name: EKG; Complete Time: 11:24 12/18 11:24 Order name: Cardiac monitoring; Complete Time: 11:32 12/18 11:24 Order name: EKG - Nurse/Tech; Complete Time: 11:33 12/18 11:24 Order name: IV Saline Lock; Complete Time: 11:54 12/18 11:24 Order name: Labs collected and sent; Complete Time: 11:54 12/18 11:24 Order name: O2 Per Protocol; Complete Time: :33 12/18 11:24 Order name: O2 Sat Monitoring; Complete Time: 11:33 rn EC:51 Rate is 95 beats/min. Rhythm is regular. QRS Spade is Normal. CO interval is normal. QRS rn interval is normal. QT interval is normal. No Q waves. T waves are Inverted in lead III. No ST changes noted. Clinical impression: NSR w/ Non-specific ST/T Changes. Interpreted by me. Reviewed by me. Administered Medications: No medications were administered Disposition: 12/19/19 13:07 Discharged to Home. Impression: Chest pain, unspecified. - Condition is Stable. - Discharge Instructions: Nonspecific Chest Pain, Pain Without a Known Cause. - Medication Reconciliation Form, Thank You Letter, Antibiotic Education, Prescription Opioid Use form. - Follow up: Private Physician; When: As needed; Reason: Recheck today's complaints, Re-evaluation by your physician. - Problem is new. - Symptoms have improved. Signatures: Dispatcher [employer] EDMS Emil Giraldo MD MD rn Wise, Tara, RN RN 2 Myranda Russell RN RN Corrections: (The following items were deleted from the chart) 13:25 13:07 12/19/2019 13:07 Discharged to Home. Impression: Chest pain, unspecified. tw2 Condition is Stable. Forms are Medication Reconciliation Form, Thank You Letter, Antibiotic Education, Prescription Opioid Use. Follow up: Private Physician; When: As needed; Reason: Recheck today's complaints, Re-evaluation by your physician. Problem is new. Symptoms have improved. rn
--- NOTE | 2019-12-19 13:08 | ER ---
Nurse's Notes [facility] Name: Treasure Engle Age: 24 yrs Sex: Female : 1995 Arrival Date: 12/19/2019 Time: 11:19 Bed 19 Private MD: Diagnosis: Chest pain, unspecified Presentation: 12/18 11:14 Chief complaint: Patient states: chest pain started at 1030am while eating breakfast, ah pain radiates down lft arm, is sharp and constant. BGL 105, 142/90, 90, 96%. Coronavirus screen: Proceed with normal triage. Patient denies a cough. Patient denies shortness of breath or difficulty breathing. Patient denies measured and/or subjective temperature greater than 100.4F prior to today's visit. Patient denies travel on a cruise ship or to a country the [facility] currently lists as an affected area. Patient denies contact with known and/or suspected case of COVID-19. Ebola Screen: No symptoms or risks identified at this time. Initial Sepsis Screen: Does the patient meet any 2 criteria? No. Patient's initial sepsis screen is negative. Does the patient have a suspected source of infection? No. Patient's initial sepsis screen is negative. Risk Assessment: Do you want to hurt yourself or someone else? Patient reports no desire to harm self or others. Onset of symptoms was December 19, 2019. 11:14 [facility] [place] 11:14 Acuity: HECTOR 3 Triage Assessment: 11:15 General: Appears in no apparent distress. obese, well groomed, Behavior is cooperative, tw2 appropriate for age, anxious. Pain: Complains of pain in chest and left arm. Cardiovascular: Reports chest pain, Denies shortness of breath. 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 tw2 Historical: - Allergies: 11:23 No Known Allergies; - Home Meds: 11:23 Celexa Oral [Active]; Doxepin Oral [Active]; Zyprexa Oral [Active]; - PMHx: 11:23 Depression; - PSHx: 11:23 None; - Immunization history:: Adult Immunizations. - Family history:: not pertinent. - Social history:: Smoking status: . - Hospitalizations: : No recent hospitalization is reported. Screenin:22 Abuse screen: Denies threats or abuse. Nutritional screening: No deficits noted. tw2 Tuberculosis screening: No symptoms or risk factors identified. Fall Risk None identified. Assessment: 11:20 General: Appears in no apparent distress. uncomfortable, obese, well groomed, Behavior tw2 is cooperative, appropriate for age, anxious. Pain: Complains of pain in chest Pain radiates to left arm. Neuro: Neuro: Level of Consciousness is awake, alert, obeys commands, Oriented to person, place, time, situation. Cardiovascular: Heart tones S1 S2 Patient's skin is warm and dry. Respiratory: Airway is patent Respiratory effort is even, unlabored, Respiratory pattern is regular, symmetrical, Breath sounds are clear bilaterally. GI: No signs and/or symptoms were reported involving the gastrointestinal system. Abdomen is round non-distended, obese, Bowel sounds present X 4 quads. : No signs and/or symptoms were reported regarding the genitourinary system. EENT: No signs and/or symptoms were reported regarding the EENT system. Derm: Skin is intact, is healthy with good turgor, Skin is clammy. Musculoskeletal: Range of motion: intact in all extremities. 11:34 Reassessment: pt in US at this time. tw2 12:18 Reassessment: Patient appears in no apparent distress at this time. No changes from tw2 previously documented assessment. Patient and/or family updated on plan of care and expected duration. Pain level reassessed. Patient is alert, oriented x 3, equal unlabored respirations, skin warm/dry/pink. 12:20 Reassessment: pt asked me to call mother Bryanna at ph\T\[phone] and let her know tw2 why she came here and how she is doing. Spoke with Bryanna at 1222 and updated as to pts status and that lab results were still pending. 13:24 Reassessment: Patient appears in no apparent distress at this time. No changes from tw2 previously documented assessment. Patient and/or family updated on plan of care and expected duration. Pain level reassessed. Patient is alert, oriented x 3, equal unlabored respirations, skin warm/dry/pink. Vital Signs: 11:33 BP 133 / 79; Pulse 96; Resp 17; Temp 97.9(TE); Pulse Ox 100% on R/A; Weight 154.22 kg tw2 (R); Height 5 ft. 4 in. (162.56 cm); 12:18 BP 112 / 81; Pulse 87; Resp 19; Pulse Ox 99% on R/A; tw2 13:23 BP 122 / 77; Pulse 84; Resp 18; Pulse Ox 99% on R/A; tw2 11:33 Body Mass Index 58.36 (154.22 kg, 162.56 cm) tw2 ED Course: 11:19 Patient arrived in ED. 11:19 Arm band placed on. tw2 11:20 Placed in gown. Bed in low position. Side rails up X2. mutuel cashier on. Pulse ox on. tw2 NIBP on. 11:21 Triage completed. 11:22 Emil Giraldo MD is Attending Physician. rn 11:32 Betsy Patel, ROYER is Primary Nurse. tw2 11:41 XRAY Chest (1 view) In Process Unspecified. EDMS 11:41 US Abdomen Limited In Process Unspecified. EDMS 11:53 Initial lab(s) drawn, by wv, sent to lab. Inserted saline lock: 22 gauge in right lt1 forearm, using aseptic technique. 13:24 No provider procedures requiring assistance completed. IV discontinued, intact, tw2 bleeding controlled, No redness/swelling at site. Pressure dressing applied. Administered Medications: No medications were administered Outcome: 13:07 Discharge ordered by . rn 13:25 Discharged to home ambulatory. tw2 13:25 Condition: stable 13:25 Discharge instructions given to patient, Instructed on discharge instructions, follow up and referral plans. Demonstrated understanding of instructions, follow-up care. 13:25 Patient left the ED. tw2 Signatures: Dispatcher [employer] EDMS Emil Giraldo MD MD rn Wise, Tara, RN RN 2 [place] [id number] Myranda Russell RN RN Corrections: (The following items were deleted from the chart) 12:16 11:33 Pulse 96bpm; Resp 17bpm; Pulse Ox 100% RA; Temp 97.9F Temporal; 154.22 kg tw2 Reported; Height 5 ft. 4 in.; BMI: 58.3; tw2
[2019-12-19 13:39] VITALS: TEMP 97.9
[2019-12-19 13:40] VITALS: O2SAT 99
[2019-12-19 13:41] VITALS: BP 122/77
--- NOTE | 2019-12-20 07:02 | EKG ---
Test Date: 2019-12-19 Test Time: 11:28:49 Overnight Stocker: YAMILET MEASUREMENT RESULTS: Intervals: Rate: 95 CO: 164 QRSD: 82 QT: 358 QTc: 449 [place]: P: 63 CO: 164 QRS: 63 T: -3 INTERPRETIVE STATEMENTS: Normal sinus rhythm Abnormal QRS-T angle, consider primary T wave abnormality Abnormal ECG No previous ECG available for comparison Electronically Signed On 12-20-19 07:00:17 CDT by Mateo Deleon
== END 2019-12-19 13:25 | disposition home or self-care (01) ==
LOC: ER 11:17
DX: R07.9 Chest pain, unspecified (principal); F32.9 Major depressive disorder, single episode, unspecified
CPT/HCPCS: 36415; 71045; 76705; 80048; 80076; 84484; 85025; 93005; 99284